=== PATIENT | female | born 1930 | race Caucasian/White ===

== ENCOUNTER 2017-11-13 05:57 | Inpatient (IN) ==
[2017-11-13] MEDS ORDERED: ceFAZolin 1,000 MG VIAL ONE (06:07)
[2017-11-13] MEDS ORDERED: VANCOMYCIN 1,000 MG VIAL ONE (06:07)
[2017-11-13] MEDS ORDERED: VANCOMYCIN INJ 1,000 MG in SODIUM CHLORIDE 0.9% 250 ML IV ONE (06:30)
[2017-11-13] MEDS ORDERED: DIAZEPAM 5 MG TABLET PO ONE (07:06)
[2017-11-13] MEDS ORDERED: PANTOPRAZOLE 40 MG TABLET PO ONE (07:06)
[2017-11-13] MEDS ORDERED: FAMOTIDINE 20 MG TABLET ONE (07:36)
[2017-11-13] MEDS ORDERED: DIAZEPAM 5 MG TABLET ONE (07:36)
[2017-11-13] MEDS ORDERED: TRANEXAMIC ACID 1,000 MG/10 ML VIAL IV ONE (09:16)
[2017-11-13] MEDS: LACTATED RINGERS 1,000 ML IV SCH ×3 (09:22→20:24)
[2017-11-13] MEDS ORDERED: BACITRACIN OINT 0.9 GM PACK TOP ONE (09:22)
[2017-11-13] MEDS ORDERED: MORPHINE 2 MG/1 ML SYRINGE IV PRN ×2 (10:22)
[2017-11-13] MEDS ORDERED: ONDANSETRON 4 MG/2 ML VIAL IV PRN (10:22)
[2017-11-13] MEDS ORDERED: ZALEPLON 5 MG CAPSULE PO PRN (10:22)
[2017-11-13] MEDS ORDERED: oxyCODONE IR 5 MG TABLET PO PRN ×2 (10:22)
[2017-11-13] MEDS ORDERED: fentaNYL 100 MCG/2 ML VIAL ONE (10:56)
[2017-11-13] MEDS ORDERED: GLUCAGON 1 MG VIAL IM PRN (11:43)
[2017-11-13] MEDS ORDERED: DEXTROSE 50% 25 GM/50 ML VIAL IV PRN (11:43)
[2017-11-13 12:18] LABS: Apearance,Urine Clear (Clear); Bilirubin,Urine Negative (Negative); Blood, Urine Negative (Negative); Glucose,Urine (UA) Negative (Negative); Ketones,Urine Negative (Negative); Nitrite,Urine Negative (Negative); Protein,Urine Negative; Urine Color Yellow (Yellow); Urine Specific Gravity 1.005 (1.001-1.035); Urine Urobilinogen 0.2 EU/DL (0.2-1.0)
[2017-11-13 12:26] LABS: Bacteria,Urine Trace /HPF (Few); RBC,Urine Rare /HPF (0-4); WBC,Urine 0-3 /HPF (0-6)
[2017-11-13] MEDS ORDERED: GLYCOPYRROLATE 0.4 MG/2 ML VIAL ONE (14:09)
[2017-11-13] MEDS ORDERED: SEVOFLURANE 1 UNIT/15 MINUTE INH ONE (14:09)
[2017-11-13] MEDS ORDERED: ROCURONIUM 100 MG/10 ML VIAL IV ONE (14:10)
[2017-11-13] MEDS ORDERED: ACETAMINOPHEN 1,000 MG/100 ML VIAL IV ONE (14:10)
[2017-11-13] MEDS: KETOROLAC 15 MG/1 ML VIAL IV SCH ×2 (16:25→22:31)
[2017-11-13] MEDS: ceFAZolin 1,000 MG in SYRINGE 1 EACH IV SCH ×2 (16:28→22:42)
[2017-11-13] MEDS: ACETAMINOPHEN 500 MG TABLET PO SCH ×2 (16:29→20:19)
[2017-11-13] MEDS: INSULIN LISPRO 100 UNIT/ML SUBCUT SCH ×2 (16:48→20:21)
[2017-11-13] MEDS: DOCUSATE SODIUM 100 MG CAPSULE PO SCH (20:21)
[2017-11-14] MEDS: ACETAMINOPHEN 500 MG TABLET PO SCH ×2 (02:34→09:00)
[2017-11-14] MEDS: FONDAPARINUX 2.5 MG/0.5 ML SYRINGE SUBCUT SCH (04:06)
[2017-11-14] MEDS: KETOROLAC 15 MG/1 ML VIAL IV SCH ×2 (04:08→10:28)
[2017-11-14 06:09] LABS: Basophils % 0.3 % (0.0-0.8); Eosinophils # 0.1 10*3/uL (0.0-0.87); Eosinophils % 1.2 % (0.00-10.9); Hemoglobin 9.7 GM/DL (12.0-16.0); Immature Granulocytes % 0.4 %; Immature Granulocytes Absolute 0.03 #; Lymphocytes # 1.6 10*3/uL (1.4-4.0); Lymphocytes % 23.1 % (21.3-54.2); Mean Corpuscular HGB Conc 33.4 GM/DL (32-36); Mean Corpuscular Hemoglobin 29 PG (27-34); Mean Corpuscular Volume 86.8 FL (87-102); Mean Platelet Volume 9.5 FL (9.6-12.0); Monocytes # 0.7 10*3/uL (0.11-0.8); Monocytes % 10.4 % (1.7-12.7); Neutrophils # 4.4 10*3/uL (1.4-7.4); Neutrophils % 64.6 % (38.7-73.9); Platelet Count 299 T/CUMM (130-400); Red Blood Count 3.34 MC/CUMM (3.8-5.5); Red Cell Distribution Width 11.9 % (9.3-17.3); White Blood Count 6.8 T/CUMM (4-12)
[2017-11-14 06:50] LABS: Calcium 8.3 MG/DL (8.5-10.1); Osmolality,Calculated 275.8 MOS/KG (273-304); Potassium 3.9 MMOL/L (3.5-5.1)
[2017-11-14] MEDS: LACTATED RINGERS 1,000 ML IV SCH ×2 (07:35)
[2017-11-14] MEDS ORDERED: TUBERCULIN SKIN TEST 0.1 ML SYRINGE INTRADERM ONE (08:00)
[2017-11-14] MEDS: LEVOFLOXACIN 250 MG TABLET PO SCH (08:59)
[2017-11-14] MEDS: PANTOPRAZOLE 40 MG TABLET PO SCH (08:59)
[2017-11-14] MEDS: hydroCHLOROthiazide 12.5 MG CAPSULE PO SCH (08:59)
[2017-11-14] MEDS: metFORMIN 500 MG TABLET PO SCH ×2 (08:59→17:09)
[2017-11-14] MEDS: DOCUSATE SODIUM 100 MG CAPSULE PO SCH ×2 (09:00→21:38)
[2017-11-14] MEDS: MULTIVITAMIN (OCUVITE) TABLET PO SCH (09:00)
[2017-11-14] MEDS ORDERED: LEVOTHYROXINE 88 MCG TABLET PO SCH (09:00)
[2017-11-14] MEDS ORDERED: GABAPENTIN 300 MG CAPSULE PO SCH (09:00)
[2017-11-14] MEDS: sitaGLIPtin 100 MG TABLET PO SCH (09:01)
[2017-11-14] MEDS: amLODIPine 5 MG TABLET PO SCH (09:01)
[2017-11-14] MEDS: ATENOLOL 25 MG TABLET PO SCH (09:01)
[2017-11-14] MEDS: INSULIN LISPRO 100 UNIT/ML SUBCUT SCH ×4 (09:02→21:38)
[2017-11-14] MEDS: CELECOXIB 200 MG CAPSULE PO SCH (17:09)
[2017-11-14] MEDS: GABAPENTIN 300 MG CAPSULE PO SCH (21:38)
[2017-11-15] MEDS: FONDAPARINUX 2.5 MG/0.5 ML SYRINGE SUBCUT SCH (05:23)
[2017-11-15 05:30] LABS: Basophils % 0.4 % (0.0-0.8); Eosinophils # 0.1 10*3/uL (0.0-0.87); Eosinophils % 1.7 % (0.00-10.9); Hematocrit 27.4 VOL% (35.7-47.0); Hemoglobin 9.6 GM/DL (12.0-16.0); Immature Granulocytes % 0.4 %; Immature Granulocytes Absolute 0.03 #; Lymphocytes # 1.8 10*3/uL (1.4-4.0); Lymphocytes % 22.1 % (21.3-54.2); Mean Corpuscular Hemoglobin 30 PG (27-34); Mean Corpuscular Volume 84.6 FL (87-102); Mean Platelet Volume 9.6 FL (9.6-12.0); Monocytes # 0.8 10*3/uL (0.11-0.8); Monocytes % 9.9 % (1.7-12.7); Neutrophils # 5.5 10*3/uL (1.4-7.4); Neutrophils % 65.5 % (38.7-73.9); Platelet Count 295 T/CUMM (130-400); Red Blood Count 3.24 MC/CUMM (3.8-5.5); Red Cell Distribution Width 11.9 % (9.3-17.3); White Blood Count 8.3 T/CUMM (4-12)
[2017-11-15] MEDS: LEVOTHYROXINE 88 MCG TABLET PO SCH ×2 (06:46→08:51)
[2017-11-15] MEDS: INSULIN LISPRO 100 UNIT/ML SUBCUT SCH ×4 (07:49→21:21)
[2017-11-15] MEDS ORDERED: ACETAMINOPHEN 325 MG TABLET PO PRN (07:50)
[2017-11-15] MEDS: LEVOFLOXACIN 250 MG TABLET PO SCH (08:50)
[2017-11-15] MEDS: hydroCHLOROthiazide 12.5 MG CAPSULE PO SCH (08:50)
[2017-11-15] MEDS: PANTOPRAZOLE 40 MG TABLET PO SCH (08:50)
[2017-11-15] MEDS: ATENOLOL 25 MG TABLET PO SCH (08:51)
[2017-11-15] MEDS: DOCUSATE SODIUM 100 MG CAPSULE PO SCH ×2 (08:51→21:21)
[2017-11-15] MEDS: MULTIVITAMIN (OCUVITE) TABLET PO SCH (08:51)
[2017-11-15] MEDS: CELECOXIB 200 MG CAPSULE PO SCH (08:51)
[2017-11-15] MEDS: sitaGLIPtin 100 MG TABLET PO SCH (08:51)
[2017-11-15] MEDS: metFORMIN 500 MG TABLET PO SCH ×2 (08:51→18:19)
[2017-11-15] MEDS: amLODIPine 5 MG TABLET PO SCH (08:51)
[2017-11-15] MEDS: MAGNESIUM HYDROXIDE SUSP 30 ML UDCUP PO PRN ×2 (12:26→21:21)
[2017-11-15] MEDS: GABAPENTIN 300 MG CAPSULE PO SCH (21:21)
[2017-11-16] MEDS: MAGNESIUM HYDROXIDE SUSP 30 ML UDCUP PO PRN (04:40)
[2017-11-16] MEDS: FONDAPARINUX 2.5 MG/0.5 ML SYRINGE SUBCUT SCH (04:40)
[2017-11-16 06:10] LABS: Basophils % 0.2 % (0.0-0.8); Eosinophils # 0.2 10*3/uL (0.0-0.87); Eosinophils % 1.9 % (0.00-10.9); Hemoglobin 10.1 GM/DL (12.0-16.0); Immature Granulocytes % 0.7 %; Immature Granulocytes Absolute 0.07 #; Lymphocytes # 1.5 10*3/uL (1.4-4.0); Lymphocytes % 15.2 % (21.3-54.2); Mean Corpuscular HGB Conc 34.8 GM/DL (32-36); Mean Corpuscular Hemoglobin 30 PG (27-34); Mean Platelet Volume 9.2 FL (9.6-12.0); Monocytes % 10.7 % (1.7-12.7); Neutrophils # 6.8 10*3/uL (1.4-7.4); Neutrophils % 71.3 % (38.7-73.9); Platelet Count 328 T/CUMM (130-400); Red Blood Count 3.41 MC/CUMM (3.8-5.5); White Blood Count 9.6 T/CUMM (4-12)
[2017-11-16] MEDS: INSULIN LISPRO 100 UNIT/ML SUBCUT SCH (07:31)
[2017-11-16 07:33] VITALS: BP 139/69
[2017-11-16] MEDS ORDERED: SODIUM PHOSPHATE ENEMA 133 ML BOTTLE RECTAL ONE (08:04)
[2017-11-16] MEDS: sitaGLIPtin 100 MG TABLET PO SCH (08:55)
[2017-11-16] MEDS: metFORMIN 500 MG TABLET PO SCH (08:55)
[2017-11-16] MEDS: PANTOPRAZOLE 40 MG TABLET PO SCH (08:56)
[2017-11-16] MEDS: DOCUSATE SODIUM 100 MG CAPSULE PO SCH (08:56)
[2017-11-16] MEDS: LEVOTHYROXINE 88 MCG TABLET PO SCH (08:57)
[2017-11-16] MEDS: hydroCHLOROthiazide 12.5 MG CAPSULE PO SCH (08:57)
[2017-11-16] MEDS: ATENOLOL 25 MG TABLET PO SCH (08:58)
[2017-11-16] MEDS: MULTIVITAMIN (OCUVITE) TABLET PO SCH (08:58)
[2017-11-16] MEDS: LEVOFLOXACIN 250 MG TABLET PO SCH (08:58)
[2017-11-16] MEDS: CELECOXIB 200 MG CAPSULE PO SCH (08:58)
[2017-11-16] MEDS: amLODIPine 5 MG TABLET PO SCH (08:59)
== END 2017-11-16 10:31 | DRG 470 ==
LOC: N.SDSINP 05:57 → N.3E 14:13
PROVIDERS: ADMIT Orthopaedic Surgery; ATTEND Orthopaedic Surgery

== ENCOUNTER 2017-12-17 15:26 | Inpatient (IN) ==
[2017-12-17] MEDS ORDERED: DEXTROSE 50% 25 GM/50 ML VIAL IV PRN (15:48)
[2017-12-17] MEDS ORDERED: GLUCAGON 1 MG VIAL IM PRN (15:48)
[2017-12-17] MEDS ORDERED: MORPHINE 2 MG/1 ML SYRINGE IV PRN ×2 (15:48)
[2017-12-17] MEDS ORDERED: ONDANSETRON 4 MG/2 ML VIAL IV PRN (15:48)
[2017-12-17] MEDS: INSULIN LISPRO 100 UNIT/ML SUBCUT SCH ×2 (17:24→20:56)
[2017-12-17 17:55] LABS: Basophils % 0.4 % (0.0-0.8); Eosinophils # 0.1 10*3/uL (0.0-0.87); Eosinophils % 1.4 % (0.00-10.9); Hematocrit 35.9 VOL% (35.7-47.0); Hemoglobin 11.4 GM/DL (12.0-16.0); Immature Granulocytes % 0.5 %; Immature Granulocytes Absolute 0.04 #; Lymphocytes # 1.8 10*3/uL (1.4-4.0); Lymphocytes % 21.4 % (21.3-54.2); Mean Corpuscular HGB Conc 31.8 GM/DL (32-36); Mean Corpuscular Hemoglobin 29 PG (27-34); Mean Corpuscular Volume 89.8 FL (87-102); Mean Platelet Volume 9.1 FL (9.6-12.0); Monocytes # 0.8 10*3/uL (0.11-0.8); Monocytes % 9.1 % (1.7-12.7); Neutrophils # 5.6 10*3/uL (1.4-7.4); Neutrophils % 67.2 % (38.7-73.9); Platelet Count 409 T/CUMM (130-400); Red Cell Distribution Width 12.6 % (9.3-17.3); White Blood Count 8.3 T/CUMM (4-12)
[2017-12-17 18:06] LABS: PT Patient Result 10.1 SECS; Partial Thromboplastin Time 28.1 SECS (0-40)
[2017-12-17 18:32] LABS: Alanine Aminotransferase 18 U/L (13-56); Albumin 3.6 G/DL (3.4-5.0); Alkaline Phosphatase 172 U/L (45-117); Aspartate Amino Transferase 13 U/L (0-37); Bilirubin,Total < 0.39 MG/DL (0.2-1.0); Blood Urea Nitrogen 20 MG/DL (7-18); Calcium 9.6 MG/DL (8.5-10.1); Glucose 135 MG/DL (74-106); Potassium 4.8 MMOL/L (3.5-5.1); Sodium 136 MMOL/L (136-145); Total Protein 6.9 G/DL (6.4-8.3)
[2017-12-17 21:34] LABS: Apearance,Urine Slightly Hazy (Clear); Bacteria,Urine Occasional /HPF (Few); Bilirubin,Urine Negative (Negative); Blood, Urine Negative (Negative); Glucose,Urine (UA) 150 mg/dL (Negative); Ketones,Urine Negative (Negative); Mucus,Urine Occasional /LPF (Occasional); Nitrite,Urine Negative (Negative); Protein,Urine Negative; RBC,Urine 1 /HPF (0-4); Squamous Epithelial Cell,Urine Occasional /HPF (0-10); Urine Color Yellow (Yellow); Urine Specific Gravity 1.011 (1.001-1.035); Urine Urobilinogen < 2.0 EU/DL (0.2-1.0); WBC,Urine 4 /HPF (0-6)
[2017-12-18] MEDS: LEVOTHYROXINE 88 MCG TABLET PO SCH (05:44)
[2017-12-18] MEDS ORDERED: VANCOMYCIN INJ 1,000 MG in SODIUM CHLORIDE 0.9% 250 ML IV ONE (06:00)
[2017-12-18] MEDS ORDERED: ceFAZolin 2,000 MG in PREMIX 1 EACH IV ONE (06:00)
[2017-12-18] MEDS: INSULIN LISPRO 100 UNIT/ML SUBCUT SCH ×4 (07:30→21:20)
[2017-12-18] MEDS: DOCUSATE SODIUM 100 MG CAPSULE PO SCH ×2 (08:08→21:19)
[2017-12-18] MEDS: PANTOPRAZOLE 40 MG TABLET PO SCH (08:09)
[2017-12-18] MEDS: OMEGA 3 ACID ETHYL ESTERS 1 GM CAPSULE PO SCH (08:09)
[2017-12-18] MEDS: hydroCHLOROthiazide 12.5 MG CAPSULE PO SCH (08:38)
[2017-12-18] MEDS: amLODIPine 5 MG TABLET PO SCH (08:38)
[2017-12-18] MEDS: ATENOLOL 25 MG TABLET PO SCH (08:39)
[2017-12-18] MEDS ORDERED: TRANEXAMIC ACID 1,000 MG/10 ML VIAL IV ONE (09:36)
[2017-12-18] MEDS ORDERED: oxyCODONE IR 5 MG TABLET PO PRN ×2 (11:32)
[2017-12-18] MEDS ORDERED: BACITRACIN OINT 0.9 GM PACK TOP ONE (12:11)
[2017-12-18] MEDS ORDERED: PROPOFOL 200 MG/20 ML VIAL IV ONE (13:40)
[2017-12-18] MEDS ORDERED: ACETAMINOPHEN 1,000 MG/100 ML VIAL IV ONE (13:41)
[2017-12-18] MEDS ORDERED: GLYCOPYRROLATE 0.4 MG/2 ML VIAL ONE (13:41)
[2017-12-18] MEDS ORDERED: ONDANSETRON 4 MG/2 ML VIAL ONE (13:41)
[2017-12-18] MEDS ORDERED: ROCURONIUM 100 MG/10 ML VIAL IV ONE (13:41)
[2017-12-18] MEDS ORDERED: fentaNYL 100 MCG/2 ML VIAL ONE ×2 (13:41→13:50)
[2017-12-18] MEDS ORDERED: HYDROmorphone 2 MG/1 ML VIAL ONE (13:41)
[2017-12-18] MEDS ORDERED: PHENYLEPHRINE 1 MG/10 ML SYRINGE IV ONE (13:42)
[2017-12-18] MEDS ORDERED: KETOROLAC 15 MG/1 ML VIAL ONE (14:01)
[2017-12-18] MEDS: KETOROLAC 15 MG/1 ML VIAL IV SCH ×3 (14:02→23:18)
[2017-12-18 14:03] LABS: Apearance,Urine Slightly Hazy (Clear); Bacteria,Urine Few /HPF (Few); Bilirubin,Urine Negative (Negative); Blood, Urine Negative (Negative); Glucose,Urine (UA) Negative (Negative); Ketones,Urine Negative (Negative); Mucus,Urine Occasional /LPF (Occasional); Nitrite,Urine Positive (Negative); Protein,Urine Negative; RBC,Urine 2 /HPF (0-4); Squamous Epithelial Cell,Urine Occasional /HPF (0-10); Urine Color Yellow (Yellow); Urine Specific Gravity 1.011 (1.001-1.035); Urine Urobilinogen < 2.0 EU/DL (0.2-1.0); WBC,Urine 67 /HPF (0-6)
[2017-12-18] MEDS: LEVOFLOXACIN INJ 500 MG in PREMIX 1 EACH IV SCH ×2 (14:52→15:16)
[2017-12-18] MEDS: ceFAZolin 2,000 MG in PREMIX 1 EACH IV SCH ×2 (14:52→23:20)
[2017-12-18] MEDS: LACTATED RINGERS 1,000 ML IV SCH (15:16)
[2017-12-18] MEDS: ACETAMINOPHEN 500 MG TABLET PO SCH ×2 (15:19→21:19)
[2017-12-18] MEDS: FONDAPARINUX 2.5 MG/0.5 ML SYRINGE SUBCUT SCH (21:18)
[2017-12-18] MEDS: GABAPENTIN 300 MG CAPSULE PO SCH (21:19)
[2017-12-19] MEDS: LACTATED RINGERS 1,000 ML IV SCH ×3 (02:53→19:31)
[2017-12-19] MEDS: ACETAMINOPHEN 500 MG TABLET PO SCH ×2 (02:54→10:03)
[2017-12-19 03:35] LABS: Basophils % 0.3 % (0.0-0.8); Eosinophils # 0.1 10*3/uL (0.0-0.87); Eosinophils % 0.6 % (0.00-10.9); Hematocrit 25.4 VOL% (35.7-47.0); Hemoglobin 8.5 GM/DL (12.0-16.0); Immature Granulocytes % 0.3 %; Immature Granulocytes Absolute 0.02 #; Lymphocytes % 24.8 % (21.3-54.2); Mean Corpuscular HGB Conc 33.5 GM/DL (32-36); Mean Corpuscular Hemoglobin 29 PG (27-34); Mean Corpuscular Volume 85.8 FL (87-102); Mean Platelet Volume 9.4 FL (9.6-12.0); Monocytes # 0.7 10*3/uL (0.11-0.8); Monocytes % 9.3 % (1.7-12.7); Neutrophils # 5.2 10*3/uL (1.4-7.4); Neutrophils % 64.7 % (38.7-73.9); Platelet Count 308 T/CUMM (130-400); Red Blood Count 2.96 MC/CUMM (3.8-5.5); Red Cell Distribution Width 12.6 % (9.3-17.3)
[2017-12-19 04:05] LABS: Calcium 8.3 MG/DL (8.5-10.1); Osmolality,Calculated 271.1 MOS/KG (273-304); Potassium 4.1 MMOL/L (3.5-5.1)
[2017-12-19] MEDS: LEVOTHYROXINE 88 MCG TABLET PO SCH (05:49)
[2017-12-19] MEDS: KETOROLAC 15 MG/1 ML VIAL IV SCH (05:50)
[2017-12-19] MEDS: INSULIN LISPRO 100 UNIT/ML SUBCUT SCH ×4 (08:18→21:36)
[2017-12-19] MEDS: metFORMIN 500 MG TABLET PO SCH ×2 (09:46→17:00)
[2017-12-19] MEDS: MULTIVITAMIN (OCUVITE) TABLET PO SCH ×2 (10:01→21:36)
[2017-12-19] MEDS: OMEGA 3 ACID ETHYL ESTERS 1 GM CAPSULE PO SCH (10:01)
[2017-12-19] MEDS: ATENOLOL 25 MG TABLET PO SCH (10:01)
[2017-12-19] MEDS: hydroCHLOROthiazide 12.5 MG CAPSULE PO SCH (10:03)
[2017-12-19] MEDS: sitaGLIPtin 25 MG TABLET PO SCH (10:03)
[2017-12-19] MEDS: PANTOPRAZOLE 40 MG TABLET PO SCH (10:06)
[2017-12-19] MEDS: DOCUSATE SODIUM 100 MG CAPSULE PO SCH ×2 (10:06→21:36)
[2017-12-19] MEDS: amLODIPine 5 MG TABLET PO SCH (10:06)
[2017-12-19] MEDS: LEVOFLOXACIN INJ 500 MG in PREMIX 1 EACH IV SCH (12:55)
[2017-12-19] MEDS: GABAPENTIN 300 MG CAPSULE PO SCH (21:36)
[2017-12-19] MEDS: FONDAPARINUX 2.5 MG/0.5 ML SYRINGE SUBCUT SCH (21:36)
[2017-12-20] MEDS: LEVOTHYROXINE 88 MCG TABLET PO SCH (05:50)
[2017-12-20 05:52] LABS: Basophils % 0.1 % (0.0-0.8); Eosinophils # 0.1 10*3/uL (0.0-0.87); Eosinophils % 1.4 % (0.00-10.9); Hematocrit 24.3 VOL% (35.7-47.0); Hemoglobin 8.1 GM/DL (12.0-16.0); Immature Granulocytes % 0.3 %; Immature Granulocytes Absolute 0.02 #; Lymphocytes # 1.5 10*3/uL (1.4-4.0); Lymphocytes % 21.3 % (21.3-54.2); Mean Corpuscular HGB Conc 33.3 GM/DL (32-36); Mean Corpuscular Hemoglobin 29 PG (27-34); Mean Corpuscular Volume 86.8 FL (87-102); Monocytes # 0.7 10*3/uL (0.11-0.8); Neutrophils # 4.8 10*3/uL (1.4-7.4); Neutrophils % 66.9 % (38.7-73.9); Platelet Count 274 T/CUMM (130-400); Red Cell Distribution Width 12.7 % (9.3-17.3); White Blood Count 7.2 T/CUMM (4-12)
[2017-12-20] MEDS: INSULIN LISPRO 100 UNIT/ML SUBCUT SCH ×4 (09:05→21:09)
[2017-12-20] MEDS: LACTATED RINGERS 1,000 ML IV SCH (09:05)
[2017-12-20] MEDS: MULTIVITAMIN (OCUVITE) TABLET PO SCH ×2 (09:25→21:08)
[2017-12-20] MEDS: ATENOLOL 25 MG TABLET PO SCH (09:25)
[2017-12-20] MEDS: sitaGLIPtin 25 MG TABLET PO SCH (09:26)
[2017-12-20] MEDS: metFORMIN 500 MG TABLET PO SCH ×2 (09:26→17:10)
[2017-12-20] MEDS: DOCUSATE SODIUM 100 MG CAPSULE PO SCH ×2 (09:27→21:08)
[2017-12-20] MEDS: PANTOPRAZOLE 40 MG TABLET PO SCH (09:27)
[2017-12-20] MEDS: OMEGA 3 ACID ETHYL ESTERS 1 GM CAPSULE PO SCH (09:27)
[2017-12-20] MEDS: MAGNESIUM HYDROXIDE SUSP 30 ML UDCUP PO PRN ×2 (09:27→17:23)
[2017-12-20] MEDS: amLODIPine 5 MG TABLET PO SCH (09:30)
[2017-12-20] MEDS: hydroCHLOROthiazide 12.5 MG CAPSULE PO SCH (09:30)
[2017-12-20] MEDS: LEVOFLOXACIN INJ 500 MG in PREMIX 1 EACH IV SCH (13:35)
[2017-12-20] MEDS ORDERED: SODIUM CHLORIDE 0.9% 1,000 ML IV PRN (15:36)
[2017-12-20] MEDS: GABAPENTIN 300 MG CAPSULE PO SCH (21:09)
[2017-12-20] MEDS: FONDAPARINUX 2.5 MG/0.5 ML SYRINGE SUBCUT SCH (21:09)
[2017-12-21 05:37] LABS: Basophils % 0.3 % (0.0-0.8); Eosinophils # 0.2 10*3/uL (0.0-0.87); Eosinophils % 3.1 % (0.00-10.9); Hematocrit 26.7 VOL% (35.7-47.0); Hemoglobin 9.1 GM/DL (12.0-16.0); Immature Granulocytes % 0.4 %; Immature Granulocytes Absolute 0.03 #; Lymphocytes # 1.7 10*3/uL (1.4-4.0); Lymphocytes % 24.6 % (21.3-54.2); Mean Corpuscular HGB Conc 34.1 GM/DL (32-36); Mean Corpuscular Hemoglobin 29 PG (27-34); Mean Corpuscular Volume 85.3 FL (87-102); Monocytes # 0.8 10*3/uL (0.11-0.8); Monocytes % 11.9 % (1.7-12.7); Neutrophils % 59.7 % (38.7-73.9); Platelet Count 293 T/CUMM (130-400); Red Blood Count 3.13 MC/CUMM (3.8-5.5); White Blood Count 6.7 T/CUMM (4-12)
[2017-12-21 05:59] LABS: Calcium 8.2 MG/DL (8.5-10.1); Osmolality,Calculated 275.7 MOS/KG (273-304); Potassium 3.6 MMOL/L (3.5-5.1)
[2017-12-21] MEDS: LEVOTHYROXINE 88 MCG TABLET PO SCH (06:10)
[2017-12-21 06:55] VITALS: BP 139/68
[2017-12-21] MEDS: INSULIN LISPRO 100 UNIT/ML SUBCUT SCH (08:43)
[2017-12-21] MEDS: MULTIVITAMIN (OCUVITE) TABLET PO SCH (09:20)
[2017-12-21] MEDS: amLODIPine 5 MG TABLET PO SCH (09:20)
[2017-12-21] MEDS: OMEGA 3 ACID ETHYL ESTERS 1 GM CAPSULE PO SCH (09:20)
[2017-12-21] MEDS: hydroCHLOROthiazide 12.5 MG CAPSULE PO SCH (09:20)
[2017-12-21] MEDS: DOCUSATE SODIUM 100 MG CAPSULE PO SCH (09:20)
[2017-12-21] MEDS: sitaGLIPtin 25 MG TABLET PO SCH (09:20)
[2017-12-21] MEDS: ATENOLOL 25 MG TABLET PO SCH (09:20)
[2017-12-21] MEDS: PANTOPRAZOLE 40 MG TABLET PO SCH (09:20)
[2017-12-21] MEDS: metFORMIN 500 MG TABLET PO SCH (09:20)
[2017-12-21] MEDS: LEVOFLOXACIN INJ 500 MG in PREMIX 1 EACH IV SCH (10:39)
== END 2017-12-21 11:14 | disposition swing bed (61) | DRG 467 ==
LOC: N.3E 15:50
PROVIDERS: ADMIT Orthopaedic Surgery; ATTEND Orthopaedic Surgery